=== PATIENT | male | born 1985 | race Caucasian/White ===

== ENCOUNTER 2017-08-30 10:42 | Emergency (ER) | payer OTHER ==
[~2017-08-30] VITALS: Ht 172.7 cm; Wt 68.6 kg
[2017-08-30 10:49] VITALS: TEMP 36.7; Ht 172.7 cm; Wt 68.6 kg
--- NOTE | 2017-08-30 11:00 | EMERGENCY ROOM VISIT NOTE ---
History Report prepared by Gay: [place] Under the Supervision of: Dr. Prabhu Izquierdo D.O. First contact with patient: 10:51 Chief Complaint: ABDOMINAL PAIN Stated Complaint: NAUSEA,DIZZINESS,ABDOMINAL, BROWN URINE History of Present Illness The patient is a 32 year old male who presents to the Emergency Room with complaints of constant lower abdominal pain that began 2 hours ago. The patient also complaints of nausea and dizziness that onset 1 hour ago, following the abdominal pain. He notes that when he urinated this morning it was "very brown. " He did experience some lower back pain, which resolved spontaneously. He denies any burning with urination or fevers. He has not history of kidney stones. Source of History: patient Onset: 2 hours ago Position: abdomen (Lower) Timing: constant Associated Symptoms: + nausea, + urinary symptoms Note: Dizziness Review of Systems See HPI for pertinent positives & negatives. A total of 10 systems reviewed and were otherwise negative. Past Medical & Surgical No past medical history. Family History Cancer Heart disease Hypertension Lung disease Social History Smoking Status: Former Smoker Marital Status: Housing Status: lives with significant other Occupation Status: employed Current/Historical Medications No Active Prescriptions or Reported Meds Allergies Coded Allergies: No Known Allergies (Unverified , 08/30/17) Physical Exam Vital Signs Date Time Temp Pulse Resp B/P (MAP) Pulse Ox O2 Delivery O2 Flow Rate FiO2 08/30/17 14:08 67 18 128/74 99 08/30/17 12:43 66 99 Room Air 08/30/17 10:49 36.7 76 18 118/84 98 Room Air Physical Exam GENERAL: Patient is awake, alert, and in no acute distress. Patient is resting comfortably and showing no signs of anxiety EYES: The conjunctivae are clear. The pupils are round and reactive. EARS, NOSE, MOUTH AND THROAT: The nose is without any evidence of any deformity. Mucous membranes are moist tongue is midline NECK: The neck is nontender and supple. RESPIRATORY: Normal respiratory effort is noted there is no evidence of wheezing rhonchi or rales CARDIOVASCULAR: Regular rate and rhythm noted there no murmurs rubs or gallops normal S1 normal S2 GASTROINTESTINAL: The abdomen is soft. Bowel sounds are present in all quadrants. Abdomen is diffusely tender, with mild guarding in both lower quadrants. BACK: No midline tenderness or or step-off noted range of motion in flexion extension as well as rotation no signs of muscle spasm noted MUSCULOSKELETAL/EXTREMITIES: There is no evidence of gross deformity full range of motion is noted in the hips and shoulders SKIN: There is no obvious evidence of any rash. There are no petechiae, pallor or cyanosis noted. NEUROLOGIC: Patient is awake alert and oriented x3 strength is symmetric patellar reflexes are 2+ bilaterally Medical Decision & Procedures ER Provider Diagnostic Interpretation: Radiology results as stated below per my review and radiologist interpretation: ABDOMEN AND PELVIS CT WITH IV AND ORAL CONTRAST CT DOSE: 280.73 mGy.cm HISTORY: Acute lower abdominal pain lowerabd pain TECHNIQUE: Multiaxial CT images of the abdomen and pelvis were performed following the use of intravenous and oral contrast. A dose lowering technique was utilized adhering to the principles of ALARA. COMPARISON STUDY: None. FINDINGS: Lung bases are generally clear. There is no pneumatosis or pneumoperitoneum identified. Imaged inferior cardiac chambers are unremarkable. Gallbladder is mildly contracted. The liver, spleen, pancreas and adrenal glands are within normal limits. 4 mm nonobstructing calculus of the inferior pole right kidney. 5 mm low attenuating lesion of the inferior pole right kidney is too small to characterize however suggests renal cyst. No ureteral calculi or obstructive uropathy. Bladder and prostate appear unremarkable. No aortic aneurysm or bulky adenopathy. IVC is within normal limits. There is no bowel obstruction or focal bowel wall thickening. The appendix appears normal. No ascites or mesenteric inflammatory changes. Terminal ileum is within normal limits. There is a tiny fat filled supraumbilical abdominal wall hernia, diastases 7 mm. Soft tissues are otherwise within normal limits. The bones appear intact. Small posterior disc osteophyte complex formation at L5-S1. IMPRESSION: 1. No acute intra-abdominal or intrapelvic abnormality identified. 2. No bowel obstruction or focal bowel wall thickening. Normal appendix. 3. 4 mm nonobstructing calculus of the inferior pole right kidney. 4. Tiny fat filled supraumbilical abdominal wall hernia. Electronically signed by: Prince Caceres M.D. 08/30/2017 1:32 PM Dictated Date/Time: 08/30/2017 1:26 PM Laboratory Results 08/30/17 11:00 Red Blood Count 5.17, Mean Corpuscular Volume 88.2, Mean Corpuscular Hemoglobin 31.3, Mean Corpuscular Hemoglobin Concent 35.5, Mean Platelet Volume 10.3, Neutrophils (%) (Auto) 55.6, Lymphocytes (%) (Auto) 29.4, Monocytes (%) (Auto) 6.2, Eosinophils (%) (Auto) 7.5, Basophils (%) (Auto) 1.0, Neutrophils # (Auto) 3.79, Lymphocytes # (Auto) 2.00, Monocytes # (Auto) 0.42, Eosinophils # (Auto) 0.51, Basophils # (Auto) 0.07 08/30/17 11:00 Test 08/30/17 11:00 08/30/17 11:10 08/30/17 11:20 White Blood Count 6.81 K/uL (4.8-10.8) Red Blood Count 5.17 M/uL (4.7-6.1) Hemoglobin 16.2 g/dL (14.0-18.0) Hematocrit 45.6 % (42-52) Mean Corpuscular Volume 88.2 fL (80-100) Mean Corpuscular Hemoglobin 31.3 pg (25-34) Mean Corpuscular Hemoglobin Concent 35.5 g/dl (32-36) Platelet Count 288 K/uL (130-400) Mean Platelet Volume 10.3 fL (7.4-10.4) Neutrophils (%) (Auto) 55.6 % Lymphocytes (%) (Auto) 29.4 % Monocytes (%) (Auto) 6.2 % Eosinophils (%) (Auto) 7.5 % Basophils (%) (Auto) 1.0 % Neutrophils # (Auto) 3.79 K/uL (1.4-6.5) Lymphocytes # (Auto) 2.00 K/uL (1.2-3.4) Monocytes # (Auto) 0.42 K/uL (0.11-0.59) Eosinophils # (Auto) 0.51 K/uL (0-0.5) Basophils # (Auto) 0.07 K/uL (0-0.2) RDW Standard Deviation 37.8 fL (36.4-46.3) RDW Coefficient of Variation 11.8 % (11.5-14.5) Immature Granulocyte % (Auto) 0.3 % Immature Granulocyte # (Auto) 0.02 K/uL (0.00-0.02) Est Creatinine Clear Calc Drug Dose 121.5 ml/min Estimated GFR () 134.9 Estimated GFR (Non- 116.4 BUN/Creatinine Ratio 10.3 (10-20) Calcium Level 9.6 mg/dl (8.5-10.1) Total Bilirubin 0.7 mg/dl (0.2-1) Direct Bilirubin 0.2 mg/dl (0-0.2) Aspartate Amino Transf (AST/SGOT) 23 U/L (15-37) Alanine Aminotransferase (ALT/SGPT) 34 U/L (12-78) Alkaline Phosphatase 87 U/L (45-117) Total Creatine Kinase 148 U/L (39-308) Total Protein 7.7 gm/dl (6.4-8.2) Albumin 4.6 gm/dl (3.4-5.0) Lipase 97 U/L (73-393) Urine Color YELLOW Urine Appearance CLEAR (CLEAR) Urine pH 8.5 (4.5-7.5) Urine Specific [place] 1.007 (1.000-1.030) Urine Protein NEG (NEG) Urine Glucose (UA) NEG (NEG) Urine Ketones NEG (NEG) Urine Occult Blood 3+ (NEG) Urine Nitrite NEG (NEG) Urine Bilirubin NEG (NEG) Urine Urobilinogen NEG (NEG) Urine Leukocyte Esterase NEG (NEG) Urine WBC (Auto) 0 /hpf (0-5) Urine RBC (Auto) >30 /hpf (0-4) Urine Hyaline Casts (Auto) 0 /lpf (0-5) Urine Epithelial Cells (Auto) 0-5 /lpf (0-5) Urine Bacteria (Auto) NEG (NEG) Bedside Hemoglobin 16.3 g/dl (14.0-18.0) Bedside Hematocrit 48 % (42-52) Bedside Sodium 140 mEq/L (135-144) Bedside Potassium 4.0 mEq/L (3.3-5.0) Bedside Chloride 100 mEq/L (101-112) Bedside Total CO2 29 mEq/l (24-31) Anion Gap 16.0 mmol/L (16-25) Bedside Blood Urea Nitrogen 8 mg/dl (7-18) Bedside Creatinine 0.8 mg/dl (0.6-1.3) Bedside Glucose (other) 92 mg/dl (70-99) Bedside Ionized Calcium (Roman) 1.26 mmol/l (1.12-1.32) Laboratory results per my review. Medications Administered Medications (Trade) Dose Ordered Sig/Janie Route Start Time Stop Time Status Last Admin Dose Admin Sodium Chloride 1,000 ml @ 999 mls/hr Q1H1M STAT IV 08/30/17 11:06 08/30/17 12:06 DC 08/30/17 11:44 999 MLS/HR Ondansetron HCl (Zofran Inj) 4 mg NOW STAT IV 08/30/17 11:06 08/30/17 11:07 DC 08/30/17 11:44 4 MG ED Course 1051: The patient was evaluated in room A3. A complete history and physical examination were performed. 1106: Ordered Zofran 4 mg IV, Sodium Chloride 1000 mL @ 999 mL/hr IV. 1347: Upon reevaluation, the patient is resting in bed. I discussed the results and treatment plan with her. She verbalized agreement of the treatment plan. The patient was discharged home. Medical Decision Differential diagnosis: Etiologies such as appendicitis, diverticulitis, PUD, biliary pathology, UTI, pancreatitis, obstruction, mesenteric ischemia, aortic pathology, infections, inflammatory bowel disease, renal colic, as well as others were entertained. Nursing notes reviewed. The patient is a 32-year-old male who presented to emergency department for an evaluation of flank pain lower abdominal pain and dark urine. The patient had very significant lower abdominal tenderness so CT the abdomen and pelvis was ordered to ensure there is no intra-abdominal pathology. The patient was found to have hematuria. He was treated with IV fluids. He did not wish to have any pain medication. I discussed patient's laboratory and radiographic studies with him. At this time I feel this likely represents a recently passed kidney stone. He was made aware that he has another renal calculus as well. He was encouraged to drink plenty clear liquids and continue using Motrin and Tylenol for pain. Otherwise he was encouraged to return the emergency department immediately if symptoms change worsen or the need arises. Medication Reconcilliation Current Medication List: was personally reviewed by me Blood Pressure Screening Patient's blood pressure: Normal blood pressure Impression Primary Impression: Flank pain Additional Impressions: Hematuria suspected renal colic Scribe Attestation The scribe's documentation has been prepared under my direction and personally reviewed by me in its entirety. I confirm that the note above accurately reflects all work, treatment, procedures, and medical decision making performed by me. Departure Information Dispostion Home / Self-Care Prescriptions No Active Prescriptions or Reported Meds Referrals No Doctor, Assigned (PCP) Forms HOME CARE DOCUMENTATION FORM, IMPORTANT VISIT INFORMATION Patient Instructions My [facility] Additional Instructions Call your family doctor to schedule a follow-up appointment. Drink plenty clear liquids. Continue using Motrin and Tylenol as directed for pain. I would recommend a recheck of your urine to be sure that the blood that was in the urine today has cleared up. I do suspect that you did pass a kidney stone and may still continue to have some symptoms. Return to the emergency department immediately if symptoms worsen or if the need arises. Problem Qualifiers Additional Impressions: Hematuria Hematuria type: unspecified type Qualified Codes: R31.9 - Hematuria, unspecified
[2017-08-30] MEDS ORDERED: ONDANSETRON INJ 2 MG/ML 2 ML VIAL IV STA (11:06)
[2017-08-30] MEDS ORDERED: SODIUM CHLORIDE 0.9% 1000ML 1,000 ML IV STA (11:06)
[2017-08-30 11:14] LABS: BASO ABS # 0.07 K/uL (0-0.2); EOS % 7.5 %; EOS ABS # 0.51 K/uL (0-0.5); HEMATOCRIT 45.6 % (42-52); HEMOGLOBIN 16.2 g/dL (14.0-18.0); IG# 0.02 K/uL (0.00-0.02); LYMPH % 29.4 %; MEAN CELL VOLUME 88.2 fL (80-100); MEAN CORPUSCULAR HEMOGLOBIN 31.3 pg (25-34); MEAN CORPUSCULAR HGB CONC 35.5 g/dl (32-36); MEAN PLATELET VOLUME 10.3 fL (7.4-10.4); MONO % 6.2 %; MONO ABS # 0.42 K/uL (0.11-0.59); NEUT % 55.6 %; NEUT ABS # 3.79 K/uL (1.4-6.5); PLATELET COUNT 288 K/uL (130-400); RED CELL DISTRIBUTION WIDTH CV 11.8 % (11.5-14.5); RED CELL DISTRIBUTION WIDTH SD 37.8 fL (36.4-46.3); WHITE BLOOD COUNT 6.81 K/uL (4.8-10.8)
[2017-08-30] MEDS ORDERED: OPTIRAY 320 IV PRN (11:15)
[2017-08-30 11:35] LABS: ISTAT CREATININE 0.8 mg/dl (0.6-1.3); ISTAT IONIZED CALCIUM 1.26 mmol/l (1.12-1.32)
[2017-08-30 11:49] LABS: ALBUMIN 4.6 gm/dl (3.4-5.0); CALCIUM 9.6 mg/dl (8.5-10.1); CREATININE 0.86 mg/dl (0.60-1.40); POTASSIUM 4.3 mmol/L (3.5-5.1); TOTAL PROTEIN 7.7 gm/dl (6.4-8.2)
--- NOTE | 2017-08-30 13:33 | DIAGNOSTIC IMAGING REPORT ---
ABDOMEN AND PELVIS CT WITH IV AND ORAL CONTRAST CT DOSE: 280.73 mGy.cm HISTORY: Acute lower abdominal pain lowerabd pain TECHNIQUE: Multiaxial CT images of the abdomen and pelvis were performed following the use of intravenous and oral contrast. A dose lowering technique was utilized adhering to the principles of ALARA. COMPARISON STUDY: None. FINDINGS: Lung bases are generally clear. There is no pneumatosis or pneumoperitoneum identified. Imaged inferior cardiac chambers are unremarkable. Gallbladder is mildly contracted. The liver, spleen, pancreas and adrenal glands are within normal limits. 4 mm nonobstructing calculus of the inferior pole right kidney. 5 mm low attenuating lesion of the inferior pole right kidney is too small to characterize however suggests renal cyst. No ureteral calculi or obstructive uropathy. Bladder and prostate appear unremarkable. No aortic aneurysm or bulky adenopathy. IVC is within normal limits. There is no bowel obstruction or focal bowel wall thickening. The appendix appears normal. No ascites or mesenteric inflammatory changes. Terminal ileum is within normal limits. There is a tiny fat filled supraumbilical abdominal wall hernia, diastases 7 mm. Soft tissues are otherwise within normal limits. The bones appear intact. Small posterior disc osteophyte complex formation at L5-S1. IMPRESSION: 1. No acute intra-abdominal or intrapelvic abnormality identified. 2. No bowel obstruction or focal bowel wall thickening. Normal appendix. 3. 4 mm nonobstructing calculus of the inferior pole right kidney. 4. Tiny fat filled supraumbilical abdominal wall hernia. Electronically signed by: Prince Caceres M.D. 08/30/2017 1:32 PM Dictated Date/Time: 08/30/2017 1:26 PM
[2017-08-30 14:08] VITALS: BP 128/74; PULSE 67; O2SAT 99
== END 2017-08-30 14:09 | disposition home or self-care (01) ==
LOC: C.EDB 10:44 → C.EDA 14:09
DX: N20.0 Calculus of kidney (principal); Z87.891 Personal history of nicotine dependence; Z80.9 Family history of malignant neoplasm, unspecified; Z82.49 Family history of ischemic heart disease and other diseases of the circulatory system